=== PATIENT | female | born 1975 | race Caucasian/White ===

== ENCOUNTER 2022-11-23 06:48 | Emergency (ER) | payer OTHER ==
[~2022-11-23] VITALS: Ht 157.5 cm; Wt 52.8 kg
[2022-11-23] MEDS ORDERED: NORGESTIMATE-E1 EAC1 PO (06:57)
[2022-11-23] MEDS ORDERED: FLUOXETINE HCL20 MG PO (06:58)
[2022-11-23] MEDS ORDERED: SPIRONOLACTONE50 MG PO (06:58)
[2022-11-23] MEDS ORDERED: MONTELUKAST SOD10 MG PO (06:58)
[2022-11-23] MEDS ORDERED: CYCLOBENZAPRINE10 MG PO (10:03)
[2022-11-23] MEDS ORDERED: ONDANSETRON ODT4 MG PO (10:03)
[2022-11-23] MEDS ORDERED: LOMOTIL TABLET1 EACH PO (10:03)
[2022-11-23 11:03] VITALS: BP 96/51
== END 2022-11-23 10:24 | disposition home or self-care (01) ==
LOC: ED 06:48
DX: A08.4 Viral intestinal infection, unspecified (principal); Z20.822 Contact with and (suspected) exposure to COVID-19; Z88.2 Allergy status to sulfonamides; Z79.899 Other long term (current) drug therapy
CPT/HCPCS: 36415; 71045; 74177; 80053; 81001; 82803; 83605; 83690; 83735; 84703; 85025; 87502; 96361; 96375; 96376; 99284-25; C9803; J1790; J2270; J2543; J3475; J7030; Q9967; U0003